=== PATIENT | male | born 1975 | race Hispanic/Latino ===

== ENCOUNTER 2018-11-15 16:03 | Observation (INO) | payer OTHER, MEDICARE ==
[~2018-11-15] VITALS: Ht 170.2 cm; Wt 71.8 kg
[2018-11-15] MEDS ORDERED: MAG HYDROX/AL HYDROX/SIMETH ES 30 ML SUSP UDCUP PO PRN (16:15)
[2018-11-15] MEDS ORDERED: LACTULOSE 20 GM/30 ML UDCUP PO PRN (16:15)
[2018-11-15] MEDS ORDERED: DiphenhydrAMINE HCL 50 MG/ML VIAL IV PRN (16:15)
[2018-11-15] MEDS ORDERED: DIPHENHYDRAMINE HCL 25 MG CAPSULE PO PRN (16:15)
[2018-11-15] MEDS ORDERED: ACETAMINOPHEN 325 MG TAB PO PRN ×2 (16:15)
[2018-11-15] MEDS ORDERED: ONDANSETRON HCL 4 MG/2 ML VIAL IV PRN (16:15)
[2018-11-15 16:34] LABS: MEAN CORPUSCULAR HEMOGLOBIN 39.9 pg (27.0-33.0); MEAN CORPUSCULAR HGB CONC 35.5 g/dL (32.0-36.0); MEAN CORPUSCULAR VOLUME 112.5 fL (79-99); NUCLEATED RED BLOOD CELLS 0.1 % (0.0-0.19); PLATELET COUNT (AUTO) 47 K/uL (130-400); RED BLOOD CELL COUNT(AUTO) 1.59 MIL/uL (4.50-6.20); RED CELL DISTRIBUTION WIDTH 15.7 % (11.0-15.5); WHITE BLOOD COUNT (AUTO) 2.2 K/uL (4.8-10.8)
[2018-11-15] MEDS ORDERED: ACETAMINOPHEN 325 MG TAB ONE (16:46)
[2018-11-15] MEDS ORDERED: SODIUM CHLORIDE 0.9% 1000ML 1,000 ML IV ONE (16:47)
[2018-11-15 16:48] LABS: INR 1.12 (0.85-1.15); PARTIAL THROMBOPLASTIN TIME 27.9 SEC (26.3-35.5); PROTHROMBIN TIME 11.7 SEC (9.6-11.6)
[2018-11-15 17:02] LABS: HEMATOCRIT 17.8 % (42-54)
[2018-11-15] MEDS ORDERED: [UNRECOGNIZED DRUG - OTHER] PO (17:12)
[2018-11-15] MEDS ORDERED: OMEG-75 PO (17:12)
[2018-11-15] MEDS ORDERED: MONT10TA24 PO (17:12)
[2018-11-15] MEDS ORDERED: SIMV10TA6 PO (17:12)
[2018-11-15] MEDS ORDERED: LEVO125T11 PO ×2 (17:12→17:15)
[2018-11-15] MEDS ORDERED: PALI6TAB PO (17:12)
[2018-11-15] MEDS ORDERED: LORA1TAB3 PO (17:12)
[2018-11-15] MEDS ORDERED: CETI10TA57 PO (17:12)
[2018-11-15] MEDS ORDERED: POTA20TA12 PO (17:12)
[2018-11-15] MEDS ORDERED: METO-391 PO (17:12)
[2018-11-15] MEDS ORDERED: DIVA250T4 PO ×2 (17:12→17:15)
[2018-11-15 17:24] LABS: BAND NEUTROPHILS % (MANUAL) 1 % (0-2); LYMPHOCYTES % (MANUAL) 35 % (22-44); MAN.DIFF COMMENT-IMPRESSION MANUAL DIFFERENTIAL; MONOCYTES % (MANUAL) 2 % (2-9); REACTIVE LYMPHOCYTES 1 % (0-0); SEGMENTED NEUTROPHILS % 61 % (40-70)
[2018-11-15 17:33] LABS: PLATELET MORPHOLOGY COMMENT MARKED DECREASE
[2018-11-15] MEDS ORDERED: SODIUM CHLORIDE 0.9% 250 ML IV ONE (19:13)
[2018-11-15] MEDS ORDERED: CYANOCOBALAMIN (VITAMIN B-12) 1000 MCG/ML 1ML VIAL IM SCH ×2 (20:15→22:00)
[2018-11-15] MEDS ORDERED: SIMVASTATIN 10 MG TABLET PO SCH (21:00)
[2018-11-15] MEDS: PANTOPRAZOLE SODIUM 40 MG TABLET.DR PO SCH (21:00)
[2018-11-15] MEDS: POTASSIUM CHLORIDE 20 MEQ ERTAB PO SCH (21:00)
[2018-11-15] MEDS: BENZTROPINE MESYLATE 0.5 MG TAB PO SCH (21:00)
[2018-11-15] MEDS ORDERED: PANTOPRAZOLE SODIUM 40 MG TABLET.DR PO ONE (21:26)
--- NOTE | 2018-11-15 23:30 | NUR ---
PT ARRIVED AT THIS TIME. FROM ER. DUE TO SYNCOPE EPISODE AT HOME. HG 6.2 INFUSED ONE RBC. PENDING 2ND RBC UNIT. MOTHER AT BEDSIDE. PT IS NOT ABLE TO TALK OR HEAR. HE IS DEAF AND MUTE. PT IS ABLE TO AMBULATE TO RR WITH MINIMAL ASSISTANCE. ROOM AIR. LAST BM 11/15. IV PATENT. NO DISTRESS NOTED.
[2018-11-16] VITALS: BP 111/73
[2018-11-16] MEDS ORDERED: SODIUM CHLORIDE 0.9% 250 ML IV ONE (00:32)
--- NOTE | 2018-11-16 00:40 | NUR ---
BLOOD TRANSFUSION STARTED AT THIS TIME. PRETRANSFUSION VITALS VNL. WITNESSED BLOOD PRODUCTS WITH RN, SIGNITURE IN CHART. IV PATENT. NO REACTION NOTED AFTER 15 MINS. VITALS WNL. DOCUMENT IN TRANSFUSION SHEET. WILL CONTINUE TO MONITOR.
[2018-11-16] MEDS: SODIUM CHLORIDE 0.9% 1000ML 1,000 ML IV SCH ×2 (02:09)
[2018-11-16 04:00] VITALS: BP 121/75
[2018-11-16 05:46] LABS: HEMATOCRIT 25.6 % (42-54); MEAN CORPUSCULAR HEMOGLOBIN 34.8 pg (27.0-33.0); MEAN CORPUSCULAR HGB CONC 34.4 g/dL (32.0-36.0); MEAN CORPUSCULAR VOLUME 101.2 fL (79-99); NUCLEATED RED BLOOD CELLS 0.1 % (0.0-0.19); PLATELET COUNT (AUTO) 49 K/uL (130-400); RED BLOOD CELL COUNT(AUTO) 2.53 MIL/uL (4.50-6.20); RED CELL DISTRIBUTION WIDTH 23.8 % (11.0-15.5); WHITE BLOOD COUNT (AUTO) 3.1 K/uL (4.8-10.8)
[2018-11-16 08:00] VITALS: BP 103/66
[2018-11-16] MEDS ORDERED: CYAN10007 IJ (08:09)
[2018-11-16] MEDS ORDERED: FAMO-136 PO (08:11)
[2018-11-16] MEDS ORDERED: LEVOTHYROXINE 125 MCG TABLET PO SCH (09:00)
[2018-11-16] MEDS ORDERED: DIVALPROEX SODIUM 250 MG TABLET.DR PO SCH ×2 (09:00→21:00)
[2018-11-16] MEDS ORDERED: METOPROLOL TARTRATE 25 MG TAB PO SCH (09:00)
[2018-11-16] MEDS ORDERED: INVEGA 6 MG PO SCH (09:00)
--- NOTE | 2018-11-16 09:00 | NUR ---
CM NOTE CHART REVIEWED, PT FOR DISCHARGE AT THIS TIME, FAMILY HERE AND WANTING TO START DISCHARGE PROCESS POST TRANSFUSIO. NO DISCHARGE CONCERNS VOICED BY RN OR FAMILY, NO CM ORDER RECD. DETAILED CM ASSESSMENT DEFERRED Addendum: 11/16/18 at 1514 by EYAD CERRATO RN CM Amended: Links added.
[2018-11-16] MEDS: BENZTROPINE MESYLATE 0.5 MG TAB PO SCH (09:26)
[2018-11-16] MEDS: PANTOPRAZOLE SODIUM 40 MG TABLET.DR PO SCH (09:26)
[2018-11-16] MEDS: POTASSIUM CHLORIDE 20 MEQ ERTAB PO SCH (09:27)
[2018-11-16 11:48] VITALS: BP 114/75
== END 2018-11-16 12:25 | disposition home or self-care (01) ==
LOC: EDH 16:03 → INTOOBSV 16:25 → EDHIP 16:25 → 4BH 23:35
PROVIDERS: ADMIT Internal Medicine; ATTEND Internal Medicine
DX: R55 Syncope and collapse (principal); D51.9 Vitamin B12 deficiency anemia, unspecified; D64.9 Anemia, unspecified; E03.9 Hypothyroidism, unspecified; L80 Vitiligo; I10 Essential (primary) hypertension; H26.9 Unspecified cataract; Z68.29 Body mass index [BMI] 29.0-29.9, adult; F84.9 Pervasive developmental disorder, unspecified; F79 Unspecified intellectual disabilities; K76.0 Fatty (change of) liver, not elsewhere classified; K75.9 Inflammatory liver disease, unspecified; Z79.899 Other long term (current) drug therapy
CPT/HCPCS: 36415 ×2; 36430 ×2; 82270; 82607; 82746; 85027 ×2; 85610; 85730; 86850; 86900; 86901; 86922 ×2; 96360; 96361; 99284; G0378 ×20; J3420 ×2; J7030 ×3; P9016 ×2

== ENCOUNTER → 2018-11-21 | Outpatient (CLI) | payer OTHER, MEDICARE ==
[~2018-11-21] MED LIST: CETI10TA57 PO; CYAN10007 IJ; DIVA250T4 PO; FAMO-136 PO; LEVO125T11 PO; LORA1TAB3 PO; METO-391 PO; MONT10TA24 PO; OMEG-75 PO; PALI6TAB PO; POTA20TA12 PO; SIMV10TA6 PO; [UNRECOGNIZED DRUG - OTHER] PO
== END | disposition home or self-care (01) ==
LOC: RAH 09:24
PROVIDERS: ATTEND Internal Medicine Gastroenterology
DX: R74.0 Nonspecific elevation of levels of transaminase and lactic acid dehydrogenase [LDH] (principal)
CPT/HCPCS: 76700

== ENCOUNTER → 2021-07-20 | Outpatient (CLI) | payer OTHER, MEDICARE ==
[~2021-07-20] MED LIST changes: +MONT-39 PO; -MONT10TA24 PO; +OMEG-189 PO; -OMEG-75 PO; +POTA-192 PO; -POTA20TA12 PO; -SIMV10TA6 PO; +SIMV10TA97 PO
== END | disposition home or self-care (01) ==
LOC: RAH 09:56
PROVIDERS: ATTEND Internal Medicine Gastroenterology
DX: R16.1 Splenomegaly, not elsewhere classified (principal); K76.0 Fatty (change of) liver, not elsewhere classified
CPT/HCPCS: 76700

== ENCOUNTER → 2022-02-12 | Outpatient (CLI) | payer OTHER, MEDICARE | END | disposition home or self-care (01) | LOC: RAH 10:20 | PROVIDERS: ATTEND Internal Medicine Gastroenterology | DX: K76.0 Fatty (change of) liver, not elsewhere classified (principal); K76.9 Liver disease, unspecified | CPT/HCPCS: 76700 ==

== ENCOUNTER → 2024-03-14 | Outpatient (CLI) | payer OTHER, MEDICARE ==
[~2024-03-14] MED LIST changes: -OMEG-189 PO; +OMEG-237 PO
[2024-03-14 15:32] LABS: EOSINOPHILS # (AUTO) 0.02 K/uL (0.00-0.70); EOSINOPHILS % (AUTO) 0.4 % (0.0-8.0); IMMATURE GRANULOCYTE ABSOLUTE 0.03 K/uL (0-1); LYMPHOCYTES # (AUTO) 1.7 K/uL (1.0-4.8); LYMPHOCYTES % (AUTO) 32.3 % (21.0-51.0); MEAN CORPUSCULAR HGB CONC 34.5 g/dL (32.0-36.0); MEAN CORPUSCULAR VOLUME 89.9 fL (79-99); MONOCYTES # (AUTO) 0.5 K/uL (0.1-1.0); MONOCYTES % (AUTO) 8.8 % (3.0-13.0); NEUTROPHILS % (AUTO) 57.9 % (40.0-77.0); PLATELET COUNT (AUTO) 121 K/uL (130-400); RED BLOOD CELL COUNT(AUTO) 5.23 MIL/uL (4.50-6.20); RED CELL DISTRIBUTION WIDTH 13.2 % (11.0-15.5); WHITE BLOOD COUNT (AUTO) 5.1 K/uL (4.8-10.8)
[2024-03-14 15:40] LABS: INR 1.09 (0.85-1.15); PROTHROMBIN TIME 11.7 SEC (9.6-11.6)
[2024-03-14 15:41] LABS: PARTIAL THROMBOPLASTIN TIME 26.9 SEC (26.3-35.5)
[2024-03-14 16:09] LABS: ALBUMIN 3.8 g/dL (3.5-5.0); BILIRUBIN,TOTAL 0.8 mg/dL (0.2-1.0); CREATININE 0.7 mg/dL (0.5-1.3); POTASSIUM 3.2 mmol/L (3.5-5.1); TOTAL PROTEIN, SERUM 8.3 g/dL (6.0-8.3)
[2024-03-15 05:00] LABS: HEPATITIS B CORE AB TOTAL Non-Reactive (Nonreactive); HEPATITIS B SURFACE ANTIBODY Negative (Reactive)
[2024-03-16 06:15] LABS: HEPATITIS A ANTIBODY TOTAL Positive (Negative)
== END | disposition home or self-care (01) ==
LOC: LAB 14:17
PROVIDERS: ATTEND Physician Assistant Medical
DX: K76.0 Fatty (change of) liver, not elsewhere classified (principal); K74.60 Unspecified cirrhosis of liver; K29.40 Chronic atrophic gastritis without bleeding; R94.5 Abnormal results of liver function studies; Z79.899 Other long term (current) drug therapy
CPT/HCPCS: 36415; 80053; 82105; 82607; 82941; 85025; 85610; 85730; 86255; 86340; 86704; 86706; 86708

== ENCOUNTER → 2024-03-19 | Outpatient (CLI) | payer OTHER, MEDICARE ==
[~2024-03-19] MED LIST changes: +IOHEXOL 350 MG/ML 100ML INFUS..BTL IV ONE
== END | disposition home or self-care (01) ==
LOC: RAH 07:48
PROVIDERS: ATTEND Physician Assistant Medical
DX: K76.0 Fatty (change of) liver, not elsewhere classified (principal); K80.20 Calculus of gallbladder without cholecystitis without obstruction; R93.2 Abnormal findings on diagnostic imaging of liver and biliary tract
CPT/HCPCS: 74170; Q9967